=== PATIENT | female | born 1995 | race Caucasian/White ===

== ENCOUNTER 2018-04-09 14:59 | Emergency (ER) | payer SELFPAY ==
--- NOTE | 2018-04-09 15:35 | EDPHY ---
H & P Time Seen by Provider: 04/09/18 15:34 HPI/ROS: Chief complaint. Insect bite HPI. Patient is 22-year-old female has a painful spot on the back of her right calf. She woke and it was somewhat itchy 1 morning and then it has progressively gotten more red and painful. She did not see any insect or spider. Otherwise no trauma. No similar symptoms previously. Now the redness seems to be expanding. She tried to Tra it herself and subsequently has gotten worse. No fever ROS 10 systems were reviewed and negative with the exception of the elements mentioned in the history of present illness Past Medical/Surgical History: Healthy Social History: Single, daily smoker, no alcohol Smoking Status: Current every day smoker Physical Exam: General Appearance: Alert pleasant well-developed female mild distress vital signs are stable. Eyes: Pupils equal and round no pallor or injection. ENT, Mouth: Mucous membranes are moist. Respiratory: There are no retractions, lungs are clear to auscultation. Cardiovascular: Regular rate and rhythm. Gastrointestinal: Abdomen is soft and nontender, no masses, bowel sounds normal. Neurological: Awake and alert, sensory and motor exams grossly normal. Skin: Posterior right calf shows a small black scab and then about a 2.5 cm surrounding area of induration that feels like abscess. There is mild lymphangitis. Musculoskeletal: Neck is supple nontender. Extremities symmetrical, full range of motion. Psychiatric: Patient is oriented X 3, there is no agitation. Constitutional: Initial Vital Signs Temperature (C) 37 C 04/09/18 15:01 Heart Rate 96 04/09/18 15:01 Respiratory Rate 17 04/09/18 15:01 Blood Pressure 119/82 H 04/09/18 15:01 O2 Sat (%) 97 04/09/18 15:01 O2 Delivery Mode Room Air Allergies/Adverse Reactions: No Known Allergies Allergy (Verified 04/09/18 15:01) Home Medications: Medication Instructions Recorded No Medications [NO HOME 05/17/11 MEDICATIONS] Sulfamethox/Tmp 800/160 mg 1 tab PO BID #10 tab 04/09/18 [Bactrim Ds] Medical Decision Making Procedures: Procedure is incision and drainage of abscess 1% lidocaine with epinephrine is infiltrated into the area. With infiltration purulence comes out from under the black scab area. After good anesthesia is obtained the areas lanced with a number 11 scalpel . Moderate amount of pus is expressed. The cavity is probed to break up loculations. It is then irrigated with normal saline. Bacitracin and Band-Aid are placed. ED Course/Re-evaluation: Patient tolerates procedure well remained stable. The patient and I discussed treatment plan including criteria for return importance of follow-up and further evaluation. She expresses understanding and agreement Differential Diagnosis: Abscess right posterior calf. Likely this is MRSA; there was no foreign body Departure - Departure Disposition: Home, Routine, Self-Care Clinical Impression: Abscess Condition: Good Instructions: Abscess (ED) Additional Instructions: Clean area daily while taking shower. Then reapply antibiotic ointment and Band-Aid for the next 3 days. Bactrim as antibiotic. Return for worsening symptoms. Recheck in 2 days if not improving Referrals: NONE *PRIMARY CARE P,. [Primary Care Provider] - As per Instructions Stand Alone Forms: Work Excuse Prescriptions: Sulfamethox/Tmp 800/160 mg [Bactrim Ds] 1 tab PO BID #10 tab
[2018-04-09 16:26] VITALS: BP 100/74
== END 2018-04-09 16:26 | disposition home or self-care (01) ==
PROC: 0H9KXZZ Drainage of Right Lower Leg Skin, External Approach (ICD-10-PCS; principal; 2018-04-09)
DX: L02.415 Cutaneous abscess of right lower limb (principal)